=== PATIENT | male | born 1955 | race Caucasian/White ===

== ENCOUNTER 2016-09-20 01:13 | Emergency (ER) | payer MEDICARE ==
[2016-09-20] MEDS ORDERED: HYDROcodone/ACETAMINOPHEN 1 EACH TABLET PO ONE (01:35)
[2016-09-20] MEDS ORDERED: CLINDAMYCIN HCL 150 MG CAPSULE PO ONE (01:35)
[2016-09-20] MEDS ORDERED: CLINDAMYCIN HCL 150 MG CAPSULE ONE (01:39)
[2016-09-20] MEDS ORDERED: HYDROcodone/ACETAMINOPHEN 1 EACH TABLET ONE (01:39)
--- NOTE | 2016-09-20 01:56 | ERNOTE ---
[facility] Date of Service: 09/20/16 Presenting Symptoms: dental pain Source: patient Exam Limitations: no limitations - Immun/Allergies/Home Medications Immunizations: IMMUNIZATION HX Immunizations Up to Date Yes History of Influenza Vaccine Yes Hx Pneumococcal Vaccination Yes Allergies/Adverse Reactions: Allergies Allergy/AdvReac Type Severity Reaction Status Date / Time codeine Allergy Verified 09/20/16 01:23 Penicillins Allergy Verified 09/20/16 01:23 Home Medications: HOME MEDICATIONS Clindamycin HCl 300 mg PO QID #56 capsule 09/20/16 [Last Taken Unknown] Clopidogrel Bisulfate [Plavix] 75 mg PO DAILY 09/20/16 [Last Taken Unknown] Famotidine [Heartburn Prevention] mg PO BID 09/20/16 [Last Taken Unknown] HYDROcodone/ACETAMINOPHEN [Lortab 5-325 mg Tablet] 1 each PO QID PRN #24 tablet 09/20/16 [Last Taken Unknown] Metoprolol Succinate [Toprol Xl] mg PO BID 09/20/16 [Last Taken Unknown] Pravastatin Sodium DAILY 09/20/16 [Last Taken Unknown] - History of Present Illness Narrative: right upper dental pain for 3 days. Has been taking Motrin but it is not helping. Now has some blood from gum. Can't stand the pain. Will see dentist on Wednesday. Otherwise well. Date (Duration): 09/17/16 Severity: Present: severe ENT Location: Present: dental - right upper Prearrival Treatment: Present: over the counter meds Associated Symptoms - ENT: Reports: denies symptoms Prior Treament: Denies: recently seen, treated by physician, currently on antibiotics Review of Systems - Review of Systems Constitutional: Absent: fever, chills EYE: Present: no symptoms reported Respiratory: Present: no symptoms reported Cardiology: Present: no symptoms reported Gastrointestinal/Abdominal: Present: no symptoms reported Neurological: Present: no symptoms reported - Patient's Past Medical History Patient History - Medical: Diabetes Type 2, Other Patient History - Cardiac/Respiratory: Hypertension, Hyperlipidemia, Myocardial Infarction Patient History - Cancer: No Hx of Cancer Patient History - Surgical Procedures: Coronary Bypass Surgery, Cardiac stent, T & A, Hernia Repair Patient History - Other: None - Social History Living Situations: home Abuse History: No History of abuse Psych History: No pertinent hx Smoking Status: Never smoker Do you dip or chew tobacco: No Alcohol Use: none Drug Use: none - Immunizations Immunizations Up to Date: Yes Hx Pneumococcal Vaccination: Yes History of Influenza Vaccine: Yes Physical Exam - Physical Exam General Appearance: Present: wd/wn, moderate distress Head Exam: Present: normal inspection Eye Exam: Normal inspection: bilateral, PERRL: bilateral, EOMI: bilateral Ears, Nose, Throat: Present: other - erythema, slight swelling right upper gum adjacent to 1st molar, small amount extruded blood/pus. Absent: sinus pain/ drainage, pharyngeal erythema Neck: Present: normal inspection, nontender, supple, full range of motion Respiratory: Present: no respiratory distress, normal breath sounds, no accessory muscle use Cardiovascular/Chest: Present: regular rate, rhythm Neurological Exam: Present: alert, oriented ED Progress - Vital Signs Patient's Vital Signs:: I have reviewed the patient's vital signs. Vital Signs: Vital Signs 09/20/16 01:16 Temperature 36.7 C Pulse Rate 63 Respiratory 16 Rate Blood Pressure 176/83 O2 Sat by Pulse 99 Oximetry - Progress/Reassessment Chief Complaint: Dental Problem Plan - Plan Plan: Clindamycin, Vicodin, f/u dentist. Departure Clinical Impression: Dental abscess - Departure Disposition: Home self-care Condition: Good Instructions: Dental Abscess, [id number] Referrals: Dion Bowles MD [Primary Care Provider] - Prescriptions: Clindamycin HCl 300 mg PO QID #56 capsule HYDROcodone/ACETAMINOPHEN [Lortab 5-325 mg Tablet] 1 each PO QID PRN #24 tablet PRN Reason: Pain
[2016-09-20 02:01] VITALS: BP 155/72
== END 2016-09-20 01:55 | disposition home or self-care (01) ==
LOC: ER 01:13
DX: K04.7 Periapical abscess without sinus (principal); I10 Essential (primary) hypertension